=== PATIENT | female | born 1940 | race Caucasian/White ===

== ENCOUNTER 2022-02-14 11:55 | Outpatient (CLI) | payer MEDICARE, OTHER | END 2022-02-14 11:56 | disposition home or self-care (01) | LOC: CSHMAMMO 11:55 | PROVIDERS: ATTEND Family Medicine | DX: Z12.31 Encounter for screening mammogram for malignant neoplasm of breast (principal); Z80.3 Family history of malignant neoplasm of breast | CPT/HCPCS: 77063; 77067 ==

== ENCOUNTER 2023-03-22 09:10 | Outpatient (CLI) | payer OTHER | END 2023-03-22 09:11 | disposition home or self-care (01) | LOC: CSHCT 09:10 | PROVIDERS: ATTEND Neurological Surgery | DX: S06.30AD Unspecified focal traumatic brain injury with loss of consciousness status unknown, subsequent encounter (principal); S06.5XAD Traumatic subdural hemorrhage with loss of consciousness status unknown, subsequent encounter | CPT/HCPCS: 70450 ==

== ENCOUNTER 2023-04-02 12:24 | Outpatient (CLI) | payer OTHER | END 2023-04-02 12:25 | disposition home or self-care (01) | LOC: CSHMAMMO 12:24 | PROVIDERS: ATTEND Physician Assistant | DX: Z12.31 Encounter for screening mammogram for malignant neoplasm of breast (principal); Z80.3 Family history of malignant neoplasm of breast | CPT/HCPCS: 77063; 77067 ==

== ENCOUNTER 2024-11-03 09:29 | Outpatient (CLI) | payer OTHER | END 2024-11-03 09:30 | disposition home or self-care (01) | LOC: CSHULT 09:29 | PROVIDERS: ATTEND Physician Assistant | DX: R10.11 Right upper quadrant pain (principal); K76.0 Fatty (change of) liver, not elsewhere classified | CPT/HCPCS: 76705 ==